=== PATIENT | female | born 1960 | race Caucasian/White ===

== ENCOUNTER 2017-04-19 18:34 | Emergency (ER) | payer OTHER ==
[~2017-04-19] VITALS: Ht 170.2 cm; Wt 113.8 kg
[~2017-04-19 18:34] MED LIST: AMBIEN10 MG PO; BENTYL10 MG PO; CLONAZEPAM1 MG PO; DIAZEPAM10 MG PO; LEVOTHYROXINE112 MCG PO; LIDEX 0.05% CRE60 GM TP; LISINOPRIL10 MG PO; LISINOPRIL20 MG PO; LISINOPRIL30 MG PO; MOTRIN800 MG PO; NEXIUM20 MG PO; NEXIUM40 MG PO; ZOCOR10 MG PO
[2017-04-19] MEDS ORDERED: TRAMADOL HCL E300 M1 PO (19:13)
[2017-04-19] MEDS ORDERED: NEXIUM40 MG PO (19:13)
[2017-04-19] MEDS ORDERED: SYNTHROID112 MCG PO (19:13)
[2017-04-19] MEDS ORDERED: SIMVASTATIN10 MG PO (19:14)
[2017-04-19] MEDS ORDERED: ZESTRIL30 MG PO (19:14)
[2017-04-19] MEDS ORDERED: VALIUM10 MG PO (19:14)
[2017-04-19 20:25] LABS: HEMATOCRIT 38.5 % (36.0-46.0); MCH 30.3 PG (29.0-34.0); MCV 88.9 FL (83-99); MEAN PLAT.VOLUME 9.3 uM^3 (9.5-12.4); PLATELET COUNT 366 K/uL (156-360); RBC DIS.WIDTH-CV 13.3 % (11.8-14.6); RBC DIS.WIDTH-SD 43.6 % (39-53); RED BLOOD COUNT 4.33 M/uL (3.80-5.20); WHITE BLOOD COUNT 13.8 K/uL (4.1-10.2)
[2017-04-19 20:37] LABS: CHLORIDE 104 mEq/L (99-109); POTASSIUM 4.1 mEq/L (3.7-5.4); SODIUM 137 mEq/L (136-147)
[2017-04-19 20:39] LABS: GLUCOSE 107 mg/dL (70-99)
[2017-04-19 20:40] LABS: D-DIMER ELISA 0.36 mg/L FEU (< 0.57)
[2017-04-19 20:41] LABS: ANION GAP 12 MEQ/L (2-14); TOTAL BILIRUBIN 0.4 mg/dL (0.0-1.0)
[2017-04-19 20:43] LABS: ALKALINE PHOSPHATASE 80 IU/L (3-129); GFR ESTIMATE (CALCULATED) > 59 mL/min/
[2017-04-19 20:44] LABS: UREA NITROGEN (BUN) 11 mg/dL (9-23)
[2017-04-19 20:47] LABS: LIPASE 43 U/L (1.0-51.0); TROP-I INTERPRETATION NEGATIVE; TROPONIN-I < 0.01 ng/mL (0.0-0.30)
[2017-04-19 21:55] LABS: ADD MIUA? YES; BILIRUBIN NEGATIVE; BLOOD SMALL; COLOR YELLOW ((YELLOW)); GLUCOSE (STRIP) NEGATIVE; KETONES NEGATIVE; LEUKOCYTES NEGATIVE; NITRITE NEGATIVE; PROTEIN (STRIP) NEGATIVE; SPECIFIC GRAVITY 1.008 (1.000-1.030); UROBILINOGEN 0.2 MG/DL (0.2-1.0)
[2017-04-19 21:57] LABS: BACTERIA NONE SEEN /HPF; EPITHELIAL CELLS RARE /HPF; MUCUS TRACE /LPF; RED BLOOD CELLS 0-5 /HPF (0-5); UCUL ADDED? NO; WHITE BLOOD CELLS 0-5 /HPF (0-5)
[2017-04-19 22:13] VITALS: BP 125/73
== END 2017-04-19 22:14 | disposition home or self-care (01) ==
LOC: EME 18:34
PROVIDERS: Physician Assistant
DX: R53.83 Other fatigue (principal); R53.1 Weakness; E11.9 Type 2 diabetes mellitus without complications; E78.5 Hyperlipidemia, unspecified; I10 Essential (primary) hypertension; K21.9 Gastro-esophageal reflux disease without esophagitis; Z87.891 Personal history of nicotine dependence
CPT/HCPCS: 71020; 80053; 81003; 83690; 84443; 84484; 85027; 85379; 99281; 99284

== ENCOUNTER → 2017-05-03 | Outpatient (CLI) | payer OTHER ==
[~2017-05-03] VITALS: Ht 170.2 cm; Wt 113.4 kg
[~2017-05-03] MED LIST changes: +SIMVASTATIN10 MG PO; +SYNTHROID112 MCG PO; +TRAMADOL HCL E300 M1 PO; +VALIUM10 MG PO; +ZESTRIL30 MG PO
== END | disposition home or self-care (01) ==
LOC: AMB 10:16
DX: R10.11 Right upper quadrant pain (principal); R11.2 Nausea with vomiting, unspecified; K30 Functional dyspepsia; E11.9 Type 2 diabetes mellitus without complications; I10 Essential (primary) hypertension; K21.9 Gastro-esophageal reflux disease without esophagitis; E03.9 Hypothyroidism, unspecified; Z82.49 Family history of ischemic heart disease and other diseases of the circulatory system; Z86.010 Personal history of colon polyps; Z87.891 Personal history of nicotine dependence
CPT/HCPCS: 88305; 88342 TC; 93005; J2250; J3010

== ENCOUNTER 2017-12-05 16:05 | Emergency (ER) | payer OTHER ==
[~2017-12-05] VITALS: Ht 170.2 cm; Wt 95.8 kg
[2017-12-05 17:05] LABS: HEMATOCRIT 36.6 % (36.0-46.0); HEMOGLOBIN 12.4 G/DL (11.9-15.5); MCH 31.2 PG (29.0-34.0); MCHC 33.9 G/DL (30.0-36.0); PLATELET COUNT 350 K/uL (156-360); RBC DIS.WIDTH-CV 12.9 % (11.8-14.6); RBC DIS.WIDTH-SD 43.2 % (39-53); RED BLOOD COUNT 3.98 M/uL (3.80-5.20); WHITE BLOOD COUNT 14.1 K/uL (4.1-10.2)
[2017-12-05 17:18] LABS: CHLORIDE 104 mEq/L (99-109); POTASSIUM 4.4 mEq/L (3.7-5.4); SODIUM 135 mEq/L (136-147)
[2017-12-05 17:20] LABS: GLUCOSE 94 mg/dL (70-99); TOTAL PROTEIN 7.8 g/dL (6.4-8.3)
[2017-12-05 17:22] LABS: TOTAL BILIRUBIN 0.3 mg/dL (0.0-1.0)
[2017-12-05 17:23] LABS: ALKALINE PHOSPHATASE 72 IU/L (3-129)
[2017-12-05 17:24] LABS: CREATININE 0.7 mg/dL (0.6-1.3); GFR ESTIMATE (CALCULATED) > 59 mL/min/
[2017-12-05 17:25] LABS: AST (GOT) 38 IU/L (2-34); UREA NITROGEN (BUN) 15 mg/dL (9-23)
[2017-12-05 17:27] LABS: ALT (GPT) 26 IU/L (3-49)
[2017-12-05 18:22] LABS: APPEARANCE SL.HAZY ((CLEAR)); BILIRUBIN NEGATIVE; BLOOD SMALL; COLOR YELLOW ((YELLOW)); GLUCOSE (STRIP) NEGATIVE; KETONES NEGATIVE; LEUKOCYTES NEGATIVE; NITRITE NEGATIVE; PROTEIN (STRIP) NEGATIVE; SPECIFIC GRAVITY 1.008 (1.000-1.030); UROBILINOGEN 0.2 MG/DL (0.2-1.0)
[2017-12-05 18:36] LABS: BACTERIA RARE /HPF; EPITHELIAL CELLS RARE /HPF; MUCUS NONE SEEN /LPF; RED BLOOD CELLS 0-5 /HPF (0-5); UCUL ADDED? NO; WHITE BLOOD CELLS 0-5 /HPF (0-5)
[2017-12-05 20:59] LABS: LIPASE 253 U/L (1.0-51.0)
[2017-12-05] MEDS ORDERED: REGLAN10 MG PO (21:39)
[2017-12-05 21:48] VITALS: BP 105/71
== END 2017-12-05 21:48 | disposition home or self-care (01) ==
LOC: EME 16:05
DX: K85.90 Acute pancreatitis without necrosis or infection, unspecified (principal); E11.9 Type 2 diabetes mellitus without complications; K21.9 Gastro-esophageal reflux disease without esophagitis; Z85.828 Personal history of other malignant neoplasm of skin; Z90.49 Acquired absence of other specified parts of digestive tract; Z91.040 Latex allergy status; Z88.5 Allergy status to narcotic agent; Z88.2 Allergy status to sulfonamides; Z88.1 Allergy status to other antibiotic agents; Z88.8 Allergy status to other drugs, medicaments and biological substances; Z91.09 Other allergy status, other than to drugs and biological substances
CPT/HCPCS: 74177; 80053; 81003; 83690; 85027; 99281; 99285; J2765